=== PATIENT | male | born 1970 | race Caucasian/White ===

== ENCOUNTER 2021-12-09 08:10 | Emergency (ER) | payer BC ==
[~2021-12-09] VITALS: Ht 177.8 cm; Wt 116.1 kg
[2021-12-09] MEDS ORDERED: ATOR10 PO (09:24)
[2021-12-09] MEDS ORDERED: METO50ER PO (09:24)
[2021-12-09] MEDS ORDERED: Atarax10 MG PO (09:25)
[2021-12-09] MEDS ORDERED: LISI5 PO (09:25)
[2021-12-09] MEDS ORDERED: Norco 5-325 Ta1 EACH PO (09:40)
[2021-12-09] MEDS ORDERED: Prednisone20 MG PO (09:40)
[2021-12-09] MEDS ORDERED: COLCHICINE0.6 MG PO (09:40)
== END 2021-12-09 09:52 | disposition home or self-care (01) ==
LOC: ER 08:10
DX: M10.9 Gout, unspecified (principal); Z79.899 Other long term (current) drug therapy
CPT/HCPCS: A9270; J7512